=== PATIENT | male | born 1950 | race Caucasian/White ===

== ENCOUNTER 2020-12-22 15:49 | Inpatient (IN) ==
[2020-12-22] MEDS ORDERED: IOPAMIDOL 100 ML BOTTLE IV ONE (15:50)
[2020-12-22] MEDS ORDERED: 0.9 % SODIUM CHLORIDE 1,000 ML IV ONE (16:12)
[2020-12-22] MEDS ORDERED: ACETAMINOPHEN 325 MG TABLET PO ONE (16:21)
--- NOTE | 2020-12-22 16:24 | Emergency Department Note ---
HPI General Chief complaint: Shortness of Breath/Dyspnea Stated complaint: SOB covid Time Seen by Provider: 12/22/20 16:08 Source: patient Mode of arrival: ambulatory Limitations: no limitations History of Present Illness HPI Narrative: This is a 70-year-old male who was sent in from [facility] for hypoxia with diagnosis of Covid today. O2 saturations are now 85% on room air. Patient complains of symptoms since Thursday. He started with muscle aches and fatigue. He now has developed shortness of breath and cough. He is on antihypertensive medications, not diabetic. No other major medical issues. He did have laboratory work-up at [facility] with a positive D-dimer of 1360 NG/mL (normal range 0-600). CBC shows normal white blood cell count, an anemia with an H&H of 13.6/39.4, platelet count of 173,000, CO2 of 17.5 mEq/L, anion gap of 19.6 mEq/L, and a creatinine 1.38 with an estimated GFR of 51. ALT and AST are elevated at 98 and 105 respectively. Patient does denies a history of excessive alcohol use. Related Data Home Medications Medication Instructions Recorded Confirmed amlodipine 10 mg PO QDAY 12/22/20 12/22/20 aspirin [Adult Low Dose Aspirin] 81 mg PO QDAY 12/22/20 12/22/20 hydrochlorothiazide 12.5 mg PO QDAY 12/22/20 12/22/20 losartan 100 mg PO DAILY 12/22/20 12/22/20 Allergies Allergy/AdvReac Type Severity Reaction Status Date / Time No Known Drug Allergies Allergy Unverified 12/22/20 19:43 Review of Systems ROS ROS Narrative: Narrative: All systems ED: reviewed and negative except as stated. [facility] Narrative Patient History Narrative: Narrative: Medical/Surgical/Family History All Active Problems (Updated 12/22/20 @ 19:14 by Vanessa Ellis PA-C) Pneumonia due to COVID-19 virus (Acute) Acute respiratory failure with hypoxia (Acute) Social History Smoking Status: Former smoker Exam Narrative Narrative: General: AOx3, NAD, nontoxic appearing. Pleasant and conversant. HEENT: PERRLA, EOMI, normocephalic. Moist mucous membranes. Normal facies and normal dentition. Chest: Symmetric, no pain to palpation Respiratory: Lungs clear to auscultation bilaterally. No respiratory distress. Unlabored breathing. Heart: Regular rate and rhythm, no murmurs/clicks/rubs. Abdomen: Non-tender, Non distended, normal bowel tones. No organomegaly. Extremities: Warm and well perfused. No edema. DP 2+ bilaterally. No venous stasis. Neuro: No focal deficits. Cranial nerves II-XII normal. Skin: Warm dry, no rashes or lesions, no cyanosis. Psych: Normal mood and affect Heme/Lymph: No bruising General Limitations: no limitations Course Course Course Narrative: This is a 70-year-old male with diagnosis of Covid who presents with hypoxia and elevated D-dimer Reevaluation(s) Reevaluation #1: Obtain CT of the chest to rule out PE Patient already had labs drawn at [facility] will not repeat these except for troponin Obtain EKG Give IV fluids Tylenol for fever Monitor for oxygen needs Reevaluation #2: CT of the chest is negative for PE and shows bilateral Covid pneumonia. Granuloatous nodules are noted with hilar lymphadenopathy. Report is negative and EKG shows normal sinus rhythm without acute ischemic ST changes. Normal intervals and left axis deviation. Patient has evidence of endorgan dysfunction on laboratory work-up from [facility], he will likely need admission given his persistent hypoxia and endorgan dysfunction Give 6 mg IV dexamethasone x1 dose Reevaluation #3: Patient was ambulated around the room and his oxygen levels dropped to 86% on room air. He was symptomatic with shortness of breath. Given patient's hypoxia he meets criteria for admission. Awaiting hospitalist consult. Vital Signs Vital signs: Vital Signs Temperature 99.3 F H 12/22/20 15:50 Pulse Rate 94 H 12/22/20 15:50 Respiratory Rate 20 12/22/20 15:50 Blood Pressure 132/76 12/22/20 15:50 Pulse Oximetry (%) 85 L 12/22/20 15:50 Temperature 99.3 F H 12/22/20 19:33 Pulse Rate 74 12/22/20 19:54 Respiratory Rate 22 12/22/20 19:54 Blood Pressure 127/74 12/22/20 19:54 Pulse Oximetry (%) 96 12/22/20 19:54 MDM MDM Narrative Medical decision making narrative: Hypoxia Covid pneumonia Acute kidney injury Transaminitis The patient meets admission criteria for severe Covid 19 infection. I have signed the patient out to the hospitalist and he is pending admission. Lab Data Labs: Lab Results 12/22/20 12/22/20 12/22/20 Range/Units 16:40 16:40 17:47 POC Creatinine 1.5 H (0.6-1.2) mg/dL Troponin T < 0.01 (<0.03) ng/mL C-Reactive Protein 2.40 H (0.03-0.80) mg/dL Discharge Plan Patient/Caregiver Discharge Instructions Pt seen by [employer] OPERATOR/PA only: Yes Clinical Impression: Pneumonia due to COVID-19 virus, Acute respiratory failure with hypoxia Patient Disposition: Xfer As Inpt ([facility]) Condition: Fair Discharge Date/Time: 12/22/20 19:30
[2020-12-22] MEDS ORDERED: DEXAMETHASONE 10 MG/ML VIAL IV ONE (17:45)
[2020-12-22] MEDS ORDERED: REMDESIVIR 200 MG in 0.9 % SODIUM CHLORIDE 250 ML IV ONE (18:08)
--- NOTE | 2020-12-22 19:15 | Internal Med History&Physical ---
HPI History of Present Illness Patient information: Note initiated : 12/22/20 at 7:10 pm Service Date, if different from initiated Date: [] Patient: Shay Finch a 70 y/o M admitted on for SOB covid. Chief Complaint: [] History of present illness: Mr. Finch is a 70 year old M Presents to the ED with shortness of breath. Patient has been feeling ill for about a week at which time he was exposed to his son who was sick. He had fevers and chills at times but not too bad. 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 He was seen at [facility] and was found to be hypoxic and was Covid positive. Pt was not vaccinated. In the ED he had sats of 85% on room air. Labs show a leukopenia and a mild elevation in transaminases and a creatinine of 1.4 with unknown baseline. Lactate 2.2. Review of Systems: Pertinent positives as above. denies headache/nausea/vomiting/chest or abdominal pain/diarrhea. Remaining 10 point review of system reviewed negative PFSH PFSH All Active Problems (Updated 12/22/20 @ 19:14 by Vanessa Ellis PA-C) Pneumonia due to COVID-19 virus (Acute) Acute respiratory failure with hypoxia (Acute) MEDS/ALLERGIES Home Medications and Allergies Home Medications Medication Instructions Recorded Confirmed Type amlodipine 10 mg PO QDAY 12/22/20 12/22/20 History aspirin [Adult Low Dose Aspirin] 81 mg PO QDAY 12/22/20 12/22/20 History hydrochlorothiazide 12.5 mg PO QDAY 12/22/20 12/22/20 History losartan 100 mg PO DAILY 12/22/20 12/22/20 History Allergies Allergy/AdvReac Type Severity Reaction Status Date / Time No Known Drug Allergies Allergy Unverified 12/22/20 15:53 EXAM Constitutional Vitals: Temp Pulse Resp BP Pulse Ox 99.3 F H 79 20 145/86 95 12/22/20 15:50 12/22/20 18:28 12/22/20 15:50 12/22/20 18:28 12/22/20 18:28 Exam: General: Alert, Awake, No acute Distress, obese Eyes/N/T: EOMI, PERRL, Head/Neck: neck supple, normocephalic atraumatic CV: RRR, No murmurs, normal s1/s2 Pulm: Fine rales b/l, no wheezing/rhonchi Abd: soft, nontender, +BS x4 Ext: no clubbing/cyanosis/edema Neuro: Alert, no focal deficits, moves all extremities, CN 2-12 grossly intact, symmetrical strength b/l upper/lower, sensations intact b/l upper/lower Skin: warm/dry DATA Data Completed and Pending Labs: Labs from last 24 hours 12/22/20 12/22/20 16:40 16:40 POC Creatinine 1.5 H Troponin T < 0.01 A/P Narrative A/P Narrative: A: *Covid pneumonia: *Acute hypoxic respiratory failure: *HTN: *Suspected CKD stage III: *Obesity: *Transaminitis: 2/2 viral illness P: -Remdesivir/dexamethasone -O2 supp, wean as able -IS/Acapella -Proning and mobilization daily -cont home norvasc/acei, hold hctz for now -update home meds in system -ppx: Lovenox bid DNR Time Spent With Patient Time: Total time spent is greater than 50% in coordination of care (as documented) at patient's floor/unit and/or counseling patient:
[2020-12-22] MEDS ORDERED: IPRATROPIUM/ALBUTEROL 3 ML AMPUL.NEB NEB PRN (19:54)
[2020-12-22] MEDS ORDERED: POLYETHYLENE GLYCOL 3350 17 GM PACKET PO PRN (19:54)
[2020-12-22] MEDS ORDERED: POTASSIUM CHLORIDE 20 MEQ TABLET PO PRN ×2 (19:54)
[2020-12-22] MEDS ORDERED: IPRATROPIUM/ALBUTEROL SULFATE 1 PUFF INHALER INH PRN (19:54)
[2020-12-22] MEDS ORDERED: SENNOSIDES 1 TABLET PO PRN (19:54)
[2020-12-22] MEDS ORDERED: POTASSIUM CHLORIDE 40 MEQ in DEXTROSE 5% IN WATER 500 ML IV PRN (19:54)
[2020-12-22] MEDS ORDERED: LABETALOL 5 MG/ML ML IV PRN (19:54)
[2020-12-22] MEDS ORDERED: MAGNESIUM SULFATE 2 GM/50 ML BAG IV PRN (19:54)
[2020-12-22] MEDS ORDERED: ACETAMINOPHEN 325 MG TABLET PO PRN (19:54)
[2020-12-22] MEDS ORDERED: ONDANSETRON 4 MG/2 ML VIAL IV PRN (19:54)
[2020-12-22] MEDS: ENOXAPARIN 40 MG/0.4 ML SYRINGE SQ SCH (21:38)
[2020-12-22] MEDS: ZINC SULFATE 50 MG CAPSULE PO SCH (21:38)
[2020-12-22] MEDS: 0.9 % SODIUM CHLORIDE 10 ML SYRINGE IV SCH (21:39)
[2020-12-23] MEDS: 0.9 % SODIUM CHLORIDE 10 ML SYRINGE IV SCH ×3 (05:26→21:22)
[2020-12-23 07:17] LABS: Hematocrit 36.6 % (40.1-51.0); Hemoglobin 12.8 g/dL (13.7-17.5); Mean Cell Volume 94.3 fL (80.0-100.0); Mean Platelet Volume 10.5 fL (7.4-10.4); Platelet Count 174 K/mcL (140-440); RBC 3.88 M/mcL (4.63-6.08); Red Cell Distribution Width 11.5 % (11.5-14.5); WBC 3.7 K/mcL (4.5-11.0)
--- NOTE | 2020-12-23 07:53 | Internal Med Progress Note ---
SUBJECTIVE Subjective Patient information: Note initiated : 12/23/20 at 7:51 am Service Date, if different from initiated Date: [] Patient: Shay Finch 70 y/o M admitted on 12/22/20 for SOB covid. Chief Complaint: [] Interval history: History of present illness: Mr. Finch is a 70 year old M Presents to the ED with shortness of breath. Patient has been feeling ill for about a week at which time he was exposed to his son who was sick. He had fevers and chills at times but not too bad. 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 He was seen at [facility] and was found to be hypoxic and was Covid positive. Pt was not vaccinated. In the ED he had sats of 85% on room air. Labs show a leukopenia and a mild elevation in transaminases and a creatinine of 1.4 with unknown baseline. Lactate 2.2. / Slept okay. Occasional cough. Feels her shortness of breath is improving. No other complaints. Review of Systems: denies headache/fever/chills/nausea/vomiting/chest or abdominal pain/diarrhea. Otherwise see above. Constitutional Vitals: Vital Signs Temp Pulse Resp BP Pulse Ox 97.7 F 69 20 113/57 92 12/23/20 03:10 12/23/20 03:10 12/23/20 03:10 12/23/20 03:10 12/23/20 03:10 Period Temp Pulse Resp BP Sys/Jones Pulse Ox Last 24 Hr 97.7 F-99.3 F 69-94 - 110-145/57-86 85-98 Intake and Output 12/22/20 12/23/20 12/23/20 21:59 05:59 13:59 Intake Total 1000 1350 Output Total 1700 Balance 1000 -350 Weight 115.383 kg Intake & Output: Intake & Output 12/22/20 12/23/20 12/23/20 21:59 05:59 13:59 Intake Total 1000 1350 Output Total 1700 Balance 1000 -350 Weight 115.383 kg Intake: IV 1000 250 Sodium Chloride 0.9% 1,000 ml @ 1000 Wide Open IV .Q0M ONE Rx#: [id number] Veklury 200 mg In Sodium 250 Chloride 0.9% 250 ml @ 500 mls/ hr IV ONCE ONE Rx#:[id number] Oral 1100 Output: Void Amount 1700 Other: Urine Appearance Clear Urine Color Dark Yellow Urine Odor Normal Exam: General: Alert, Awake, No acute Distress, obese Eyes/N/T: EOMI, Head/Neck: neck supple, CV: RRR, No murmurs, Pulm: Fine rales b/l, no wheezing/rhonchi Abd: soft, nontender, +BS x4 Ext: no clubbing/cyanosis/edema Neuro: Alert, no focal deficits, moves all extremities, Skin: warm/dry OBJ DATA Labs CBC & Chem 7: 12/23/20 05:40 12/23/20 05:39 Labs: Abnormal Lab Results 12/23/20 12/22/20 12/22/20 05:40 17:47 16:40 WBC 3.7 L RBC 3.88 L Hgb 12.8 L Hct 36.6 L MPV 10.5 H POC Creatinine 1.5 H C-Reactive Protein 2.40 H Meds: Medications Acetaminophen (Acetaminophen 325 Mg Tablet) 650 mg PO Q6HP PRN PRN Reason: PAIN/FEVER > 101 Albuterol/Ipratropium (Ipratropium/Albuterol 3 Ml Ampul.Neb) 3 ml NEB Q4HP PRN PRN Reason: Shortness Of Breath Albuterol/Ipratropium (Ipratropium/Albuterol Sulfate 1 Puff Inhaler) 2 puff INH QIDP PRN PRN Reason: dys Amlodipine Besylate (Amlodipine 10 Mg Tablet) 10 mg PO QDAY [facility] Aspirin (Aspirin 81 Mg Tab.Chew) 81 mg PO DAILY [facility] Dexamethasone (Dexamethasone 4 Mg Tablet) 6 mg PO DAILY [facility] Enoxaparin Sodium (Enoxaparin 40 Mg/0.4 Ml Syringe) 40 mg SQ BID [facility] Last Admin: 12/22/20 21:38 Dose: 40 mg Documented by: Potassium Chloride 40 meq/ (Dextrose) 520 mls @ 130 mls/hr IV UD PRN PRN Reason: Potassium < 3 Magnesium Sulfate (Magnesium Sulfate) 2 gm in 50 mls @ 50 mls/hr IV UD PRN PRN Reason: Magnesium </= 1.6 REMDESIVIR 100 mg/ Sodium (Chloride) 250 mls @ 500 mls/hr IV Q24H [facility] Stop: 12/26/20 15:29 Labetalol HCl (Labetalol 5 Mg/Ml Ml) 0 mg IV Q2HP PRN PRN Reason: Hypertension Losartan Potassium (Losartan 50 Mg Tablet) 100 mg PO DAILY [facility] Ondansetron HCl (Ondansetron 4 Mg/2 Ml Vial) 4 mg IV Q4HP PRN PRN Reason: Nausea And Vomiting Polyethylene Glycol (Polyethylene Glycol 3350 17 Gm Packet) 17 gm PO DAILYP PRN PRN Reason: Constipation Potassium Chloride (Potassium Chloride 20 Meq Tablet) 40 meq PO UD PRN PRN Reason: Potssium is 3-3.5 Potassium Chloride (Potassium Chloride 20 Meq Tablet) 40 meq PO UD PRN PRN Reason: Potassium < 3 Senna (Sennosides 1 Tablet) 2 tab PO DAILYP PRN PRN Reason: Constipation Sodium Chloride (0.9 % Sodium Chloride 10 Ml Syringe) 10 ml IV Q8 [facility] Last Admin: 12/23/20 05:26 Dose: 10 ml Documented by: Zinc Sulfate (Zinc Sulfate 50 Mg Capsule) 50 mg PO DAILY [facility] Last Admin: 12/22/20 21:38 Dose: Not Given Documented by: A/P Narrative A/P Narrative: A: *Covid pneumonia: *Acute hypoxic respiratory failure: -on 2L NC *HTN: *Suspected CKD stage III: likely baseline *Obesity: *Transaminitis: 2/2 viral illness P: -Remdesivir/dexamethasone -O2 supp, wean as able -IS/Acapella -Proning and mobilization daily -cont home norvasc/acei, hold hctz for now -update home meds in system -ppx: Lovenox bid DNR Time Spent With Patient Time: Total time spent is greater than 50% in coordination of care (as documented) at patient's floor/unit and/or counseling patient: QUALITY VTE Deep Vein Thrombosis/Pulmonary Embolism Present on Admission: No
[2020-12-23] MEDS: ASPIRIN 81 MG TAB.CHEW PO SCH (07:57)
[2020-12-23] MEDS: ZINC SULFATE 50 MG CAPSULE PO SCH (07:57)
[2020-12-23] MEDS: amLODIPine 10 MG TABLET PO SCH (07:57)
[2020-12-23] MEDS: DEXAMETHASONE 4 MG TABLET PO SCH (07:58)
[2020-12-23] MEDS: ENOXAPARIN 40 MG/0.4 ML SYRINGE SQ SCH ×2 (07:58→21:22)
[2020-12-23 08:19] LABS: ALT/SGPT 78 U/L (<40); AST/SGOT 82 U/L (<40); Albumin 3.3 gm/dL (3.2-5.2); Alkaline Phosphatase 77 U/L (39-117); Bilirubin,Direct < 0.2 mg/dL (0-0.3); Bilirubin,Total 0.2 mg/dL (0.1-1.0); Blood Urea Nitrogen 17 mg/dL (8-23); Calcium 8.8 mg/dL (8.6-10.4); Carbon Dioxide 19 mmol/L (22-30); Chloride 101 mmol/L (96-108); Globulin 3.3 gm/dL (2.2-3.7); Glomerular Filtration Rate 50; Glucose 182 mg/dL (70-105); Lactate Dehydrogenase 464 U/L (135-225); Phosphorous 2.9 mg/dL (2.5-4.5); Triglycerides 106 mg/dL (<150); Uric Acid 6.6 mg/dL (2.5-8.0)
[2020-12-23 08:30] LABS: Band Neutrophils % 5 % (0-10); Lymphocytes % 19 % (15-49); Monocytes % (Manual) 5 % (1-12); Platelet Estimate NORMAL (Normal); RBC Morphology NORMAL (Normal); Segmented Neutrophils % 71 % (38-78)
--- NOTE | 2020-12-23 08:31 | Cat Scan Report ---
History: COVID pneumonia, hypoxia, elevated serum d-dimer level, evaluate for pulmonary emboli TECHNIQUE: Following injection of intravenous nonionic contrast the chest was imaged during the pulmonary arterial phase. Sagittal, coronal and axial MIPS images were created. FINDINGS: The pulmonary arteries are normal with no intraluminal filling defects. There is a mosaic pattern of diffuse groundglass alveolar infiltrates throughout both lungs. No lobar consolidation is present. Lung volumes are normal. The bronchi and trachea appear normal. There are least six small subpleural noncalcified nodules in the right lung and a couple posteriorly in the left lower lobe. They measure up to 9 mm in greatest dimension. No dominant mass is present in either lung. There are couple reactive lymph nodes in both lizabeth. Largest is in the right lower lobe and measures 1.8 cm. The heart is normal in size and contour. A moderate amount calcified plaque is present in the coronary arteries. Aorta is normal in caliber containing a small amount of plaque. No pericardial or pleural effusion are present. IMPRESSION: No evidence pulmonary emboli Moderate bilateral COVID pneumonia Nonspecific peripheral lung nodules bilaterally. These are more likely benign than malignant and may be due to a granulomatous infection Vanessa Ellis was called with the report Interpreted and Authenticated by: Salvatore Quintana 12/23/20
[2020-12-23] MEDS ORDERED: LOSARTAN 50 MG TABLET PO SCH (09:00)
[2020-12-23] MEDS ORDERED: REMDESIVIR 100 MG in 0.9 % SODIUM CHLORIDE 250 ML IV SCH (15:00)
[2020-12-24] MEDS: 0.9 % SODIUM CHLORIDE 10 ML SYRINGE IV SCH ×3 (05:43→20:06)
--- NOTE | 2020-12-24 07:37 | Internal Med Progress Note ---
SUBJECTIVE Subjective Patient information: Note initiated : 12/24/20 at 7:35 am Service Date, if different from initiated Date: [] Patient: Shay Finch 70 y/o M admitted on 12/22/20 for SOB covid. Chief Complaint: [] Interval history: History of present illness: Mr. Finch is a 70 year old M Presents to the ED with shortness of breath. Patient has been feeling ill for about a week at which time he was exposed to his son who was sick. He had fevers and chills at times but not too bad. 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 He was seen at [facility] and was found to be hypoxic and was Covid positive. Pt was not vaccinated. In the ED he had sats of 85% on room air. Labs show a leukopenia and a mild elevation in transaminases and a creatinine of 1.4 with unknown baseline. Lactate 2.2. 12/23 Slept okay. Occasional cough. Feels her shortness of breath is improving. No other complaints. 12/24 Patient became increasingly hypoxic last night. He did not clearly feel short of breath but he required 215 L oxygen mask. Transfer to PCU on Vapotherm. Patient has occasional cough and does have shortness of breath but does not feel it is any worse. Review of Systems: denies headache/fever/chills/nausea/vomiting/chest or abdominal pain/diarrhea. Otherwise see above. Constitutional Vitals: Vital Signs Temp Pulse Resp BP Pulse Ox 97.5 F 74 22 138/65 92 12/24/20 07:00 12/24/20 07:00 12/24/20 07:00 12/24/20 07:00 12/24/20 07:00 Period Temp Pulse Resp BP Sys/Jones Pulse Ox Last 24 Hr 97.1 F-99.5 F 69-83 19-24 99-150/51-83 4-96 Intake and Output 12/23/20 12/24/20 12/24/20 21:59 05:59 13:59 Intake Total 1850 Balance 1850 Weight 116.29 kg Intake & Output: Intake & Output 12/23/20 12/24/20 12/24/20 21:59 05:59 13:59 Intake Total 1850 Balance 1850 Weight 116.29 kg Intake: IV 250 Veklury 100 mg In Sodium 250 Chloride 0.9% 250 ml @ 500 mls/ hr IV Q24H [facility] Rx#:[id number] Oral 1600 Other: Meal Lunch Percent of Meal Consumed 100% # Voids 4 3 # Bowel Movements 1 Exam: General: Alert, Awake, No acute Distress, obese Eyes/N/T: EOMI, Head/Neck: neck supple, CV: RRR, No murmurs, Pulm: rhonchi/rales b/l, no wheezing/rhonchi, nonlabored Abd: soft, nontender, +BS x4 Ext: no clubbing/cyanosis, mild edema b/l Neuro: Alert, no focal deficits, moves all extremities, Skin: warm/dry OBJ DATA Labs CBC & Chem 7: 12/23/20 05:40 12/24/20 05:43 Labs: Abnormal Lab Results 12/23/20 12/23/20 12/22/20 05:40 05:39 17:47 WBC 3.7 L RBC 3.88 L Hgb 12.8 L Hct 36.6 L MPV 10.5 H Carbon Dioxide 19 L Anion Gap 18.0 H Creatinine 1.4 H POC Creatinine Glucose 182 H GGT 64 H AST 82 H ALT 78 H Lactate Dehydrogenase 464 H C-Reactive Protein 2.20 H 2.40 H 12/22/20 16:40 WBC RBC Hgb Hct MPV Carbon Dioxide Anion Gap Creatinine POC Creatinine 1.5 H Glucose GGT AST ALT Lactate Dehydrogenase C-Reactive Protein Meds: Medications Acetaminophen (Acetaminophen 325 Mg Tablet) 650 mg PO Q6HP PRN PRN Reason: PAIN/FEVER > 101 Albuterol/Ipratropium (Ipratropium/Albuterol 3 Ml Ampul.Neb) 3 ml NEB Q4HP PRN PRN Reason: Shortness Of Breath Albuterol/Ipratropium (Ipratropium/Albuterol Sulfate 1 Puff Inhaler) 2 puff INH QIDP PRN PRN Reason: dys Amlodipine Besylate (Amlodipine 10 Mg Tablet) 10 mg PO QDAY [facility] Last Admin: 12/23/20 07:57 Dose: 10 mg Documented by: Aspirin (Aspirin 81 Mg Tab.Chew) 81 mg PO DAILY [facility] Last Admin: 12/23/20 07:57 Dose: 81 mg Documented by: Dexamethasone (Dexamethasone 4 Mg Tablet) 6 mg PO DAILY [facility] Last Admin: 12/23/20 07:58 Dose: 6 mg Documented by: Enoxaparin Sodium (Enoxaparin 40 Mg/0.4 Ml Syringe) 40 mg SQ BID [facility] Last Admin: 12/23/20 21:22 Dose: 40 mg Documented by: Potassium Chloride 40 meq/ (Dextrose) 520 mls @ 130 mls/hr IV UD PRN PRN Reason: Potassium < 3 Magnesium Sulfate (Magnesium Sulfate) 2 gm in 50 mls @ 50 mls/hr IV UD PRN PRN Reason: Magnesium </= 1.6 REMDESIVIR 100 mg/ Sodium (Chloride) 250 mls @ 500 mls/hr IV Q24H [facility] Stop: 12/26/20 15:29 Last Infusion: 12/23/20 15:30 Dose: Infused Documented by: Labetalol HCl (Labetalol 5 Mg/Ml Ml) 0 mg IV Q2HP PRN PRN Reason: Hypertension Losartan Potassium (Losartan 50 Mg Tablet) 100 mg PO DAILY [facility] Last Admin: 12/23/20 07:57 Dose: 100 mg Documented by: Ondansetron HCl (Ondansetron 4 Mg/2 Ml Vial) 4 mg IV Q4HP PRN PRN Reason: Nausea And Vomiting Polyethylene Glycol (Polyethylene Glycol 3350 17 Gm Packet) 17 gm PO DAILYP PRN PRN Reason: Constipation Potassium Chloride (Potassium Chloride 20 Meq Tablet) 40 meq PO UD PRN PRN Reason: Potssium is 3-3.5 Potassium Chloride (Potassium Chloride 20 Meq Tablet) 40 meq PO UD PRN PRN Reason: Potassium < 3 Senna (Sennosides 1 Tablet) 2 tab PO DAILYP PRN PRN Reason: Constipation Sodium Chloride (0.9 % Sodium Chloride 10 Ml Syringe) 10 ml IV Q8 [facility] Last Admin: 12/24/20 05:43 Dose: 10 ml Documented by: Zinc Sulfate (Zinc Sulfate 50 Mg Capsule) 50 mg PO DAILY [facility] Last Admin: 12/23/20 07:57 Dose: 50 mg Documented by: A/P Narrative A/P Narrative: A: *Covid pneumonia w/ARDS: *Acute hypoxic respiratory failure: -O2 need increased n/on to 12-15L oxymask, now on vapotherm *HTN: *Suspected CKD stage III: likely baseline *Obesity: *Transaminitis: 2/2 viral illness P: -Remdesivir/dexamethasone -O2 supp, wean as able -IS/Acapella -monitor crp -Proning and mobilization daily -cont home norvasc/acei, hold hctz for now -ppx: Lovenox bid DNR Time Spent With Patient Time: Total time spent is greater than 50% in coordination of care (as documented) at patient's floor/unit and/or counseling patient: QUALITY VTE Deep Vein Thrombosis/Pulmonary Embolism Present on Admission: No
[2020-12-24 08:02] LABS: ALT/SGPT 71 U/L (<40); AST/SGOT 68 U/L (<40); Albumin 3.3 gm/dL (3.2-5.2); Albumin/Globulin Ratio 0.9 (1.0-2.3); Alkaline Phosphatase 86 U/L (39-117); Bilirubin,Direct < 0.2 mg/dL (0-0.3); Bilirubin,Total 0.2 mg/dL (0.1-1.0); Blood Urea Nitrogen 26 mg/dL (8-23); Calcium 8.9 mg/dL (8.6-10.4); Carbon Dioxide 20 mmol/L (22-30); Chloride 101 mmol/L (96-108); Globulin 3.6 gm/dL (2.2-3.7); Glomerular Filtration Rate 67; Glucose 133 mg/dL (70-105); Lactate Dehydrogenase 511 U/L (135-225); Phosphorous 2.9 mg/dL (2.5-4.5); Triglycerides 120 mg/dL (<150); Uric Acid 6.5 mg/dL (2.5-8.0)
[2020-12-24] MEDS: ZINC SULFATE 50 MG CAPSULE PO SCH (09:04)
[2020-12-24] MEDS: DEXAMETHASONE 4 MG TABLET PO SCH (09:04)
[2020-12-24] MEDS: ENOXAPARIN 40 MG/0.4 ML SYRINGE SQ SCH ×2 (09:04→20:06)
[2020-12-24] MEDS: amLODIPine 10 MG TABLET PO SCH (09:04)
[2020-12-24] MEDS: ASPIRIN 81 MG TAB.CHEW PO SCH (09:04)
[2020-12-24] MEDS ORDERED: FUROSEMIDE 40 MG/4 ML VIAL IV ONE ×2 (09:14→09:59)
[2020-12-24] MEDS ORDERED: IPRATROPIUM/ALBUTEROL SULFATE 1 PUFF INHALER INH PRN (09:59)
[2020-12-24] MEDS ORDERED: IPRATROPIUM/ALBUTEROL 3 ML AMPUL.NEB NEB PRN (09:59)
[2020-12-24] MEDS ORDERED: LABETALOL 5 MG/ML ML IV PRN (09:59)
[2020-12-24] MEDS ORDERED: MAGNESIUM SULFATE 2 GM/50 ML BAG IV PRN (09:59)
[2020-12-24] MEDS ORDERED: SENNOSIDES 1 TABLET PO PRN (09:59)
[2020-12-24] MEDS ORDERED: POTASSIUM CHLORIDE 40 MEQ in DEXTROSE 5% IN WATER 500 ML IV PRN (09:59)
[2020-12-24] MEDS ORDERED: ONDANSETRON 4 MG/2 ML VIAL IV PRN (09:59)
[2020-12-24] MEDS ORDERED: ACETAMINOPHEN 325 MG TABLET PO PRN (09:59)
[2020-12-24] MEDS ORDERED: POLYETHYLENE GLYCOL 3350 17 GM PACKET PO PRN (09:59)
[2020-12-24] MEDS ORDERED: POTASSIUM CHLORIDE 20 MEQ TABLET PO PRN ×2 (09:59)
[2020-12-24] MEDS: REMDESIVIR 100 MG in 0.9 % SODIUM CHLORIDE 250 ML IV SCH (15:43)
[2020-12-24] MEDS: diphenhydrAMINE 25 MG CAPSULE PO SCH (21:11)
[2020-12-24] MEDS: MELATONIN 3 MG TABLET PO SCH (21:11)
[2020-12-24] MEDS: ACETAMINOPHEN 500 MG TABLET PO SCH (21:11)
[2020-12-25] MEDS: 0.9 % SODIUM CHLORIDE 10 ML SYRINGE IV SCH ×3 (05:54→21:19)
[2020-12-25 07:38] LABS: Basophils # (Auto) 0.01 K/mcL (0.00-0.30); Basophils % (Auto) 0.1 % (0.0-2.0); Eosinophils # (Auto) 0 K/mcL (0.00-0.70); Eosinophils % (Auto) 0 % (0.0-7.0); Hematocrit 35.7 % (40.1-51.0); Hemoglobin 12.3 g/dL (13.7-17.5); Lymphocytes # (Auto) 1.27 K/mcL (1.50-4.80); Lymphocytes % (Auto) 10.1 % (15.5-49.0); Mean Cell Volume 95.2 fL (80.0-100.0); Mean Corpuscular HGB Conc 34.5 g/dL (31.0-36.0); Mean Platelet Volume 10.4 fL (7.4-10.4); Monocytes # (Auto) 0.87 K/mcL (0.10-0.90); Monocytes % (Auto) 6.9 % (1.0-12.0); Neutrophils % (Auto) 82.9 % (38.0-78.0); Platelet Count 267 K/mcL (140-440); RBC 3.75 M/mcL (4.63-6.08); Red Cell Distribution Width 11.6 % (11.5-14.5); WBC 12.6 K/mcL (4.5-11.0)
[2020-12-25 08:22] LABS: ALT/SGPT 69 U/L (<40); AST/SGOT 58 U/L (<40); Albumin 3.1 gm/dL (3.2-5.2); Alkaline Phosphatase 80 U/L (39-117); Bilirubin,Direct < 0.2 mg/dL (0-0.3); Bilirubin,Total 0.3 mg/dL (0.1-1.0); Blood Urea Nitrogen 28 mg/dL (8-23); Calcium 8.6 mg/dL (8.6-10.4); Carbon Dioxide 23 mmol/L (22-30); Chloride 101 mmol/L (96-108); Glomerular Filtration Rate 86; Glucose 125 mg/dL (70-105); Lactate Dehydrogenase 427 U/L (135-225); Phosphorous 3.5 mg/dL (2.5-4.5); Triglycerides 135 mg/dL (<150); Uric Acid 7.2 mg/dL (2.5-8.0)
--- NOTE | 2020-12-25 08:23 | Internal Med Progress Note ---
SUBJECTIVE Subjective Patient information: Note initiated : 12/25/20 at 8:21 am Service Date, if different from initiated Date: [] Patient: Shay Finch a 70 y/o M admitted on 12/22/20 for SOB covid. Chief Complaint: [] Interval history: History of present illness: Mr. Finch is a 70 year old M Presents to the ED with shortness of breath. Patient has been feeling ill for about a week at which time he was exposed to his son who was sick. He had fevers and chills at times but not too bad. 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 He was seen at [facility] and was found to be hypoxic and was Covid positive. Pt was not vaccinated. In the ED he had sats of 85% on room air. Labs show a leukopenia and a mild elevation in transaminases and a creatinine of 1.4 with unknown baseline. Lactate 2.2. 12/23 Slept okay. Occasional cough. Feels her shortness of breath is improving. No other complaints. 12/24 Patient became increasingly hypoxic last night. He did not clearly feel short of breath but he required 215 L oxygen mask. Transfer to PCU on Vapotherm. Patient has occasional cough and does have shortness of breath but does not feel it is any worse. 12/25 Patient on Vapotherm at 20 L/min. FiO2 around 70. Patient does feel like he is breathing better. No overnight event or new complaints. Mild cough. Review of Systems: denies headache/fever/chills/nausea/vomiting/chest or abdominal pain/diarrhea. Otherwise see above. Constitutional Vitals: Vital Signs Temp Pulse Resp BP Pulse Ox 97.5 F 63 18 113/66 98 12/25/20 04:02 12/25/20 06:02 12/25/20 06:02 12/25/20 06:02 12/25/20 08:15 Period Temp Pulse Resp BP Sys/Jones Pulse Ox Last 24 Hr 97.5 F-98.7 F 55-82 13-23 111-136/65-79 90-98 Intake and Output 12/24/20 12/25/20 12/25/20 21:59 05:59 13:59 Intake Total 950 460 Output Total 1550 900 Balance -600 -440 Weight 117.208 kg Intake & Output: Intake & Output 12/24/20 12/25/20 12/25/20 21:59 05:59 13:59 Intake Total 950 460 Output Total 1550 900 Balance -600 -440 Weight 117.208 kg Intake: IV 250 Veklury 100 mg In Sodium 250 Chloride 0.9% 250 ml @ 500 mls/ hr IV Q24H [facility] Rx#:[id number] Oral 700 460 Output: Void Amount 1550 900 Other: Urine Appearance Clear Clear Urine Color Dark Yellow Bright Yellow Urine Odor Normal Exam: General: Alert, Awake, No acute Distress, obese Eyes/N/T: EOMI, Head/Neck: neck supple, CV: RRR, No murmurs, Pulm: mild fine rales b/l, no wheezing, nonlabored Abd: soft, nontender, +BS x4 Ext: no clubbing/cyanosis, trace edema b/l Neuro: Alert, no focal deficits, moves all extremities, Skin: warm/dry OBJ DATA Labs CBC & Chem 7: 12/25/20 05:36 12/25/20 05:36 Labs: Abnormal Lab Results 12/25/20 12/24/20 12/23/20 05:36 05:43 05:40 WBC 12.6 H 3.7 L RBC 3.75 L 3.88 L Hgb 12.3 L 12.8 L Hct 35.7 L 36.6 L MPV 10.5 H Neut % (Auto) 82.9 H Lymph % (Auto) 10.1 L Lymph # (Auto) 1.27 L Absolute Neutrophils 10.42 H Carbon Dioxide 20 L Anion Gap BUN 26 H Creatinine POC Creatinine Glucose 133 H GGT 73 H AST 68 H ALT 71 H Lactate Dehydrogenase 511 H C-Reactive Protein Albumin/Globulin Ratio 0.9 L 12/23/20 12/22/20 12/22/20 05:39 17:47 16:40 WBC RBC Hgb Hct MPV Neut % (Auto) Lymph % (Auto) Lymph # (Auto) Absolute Neutrophils Carbon Dioxide 19 L Anion Gap 18.0 H BUN Creatinine 1.4 H POC Creatinine 1.5 H Glucose 182 H GGT 64 H AST 82 H ALT 78 H Lactate Dehydrogenase 464 H C-Reactive Protein 2.20 H 2.40 H Albumin/Globulin Ratio Meds: Medications Acetaminophen (Acetaminophen 325 Mg Tablet) 650 mg PO Q6HP PRN PRN Reason: PAIN/FEVER > 101 Acetaminophen (Acetaminophen 500 Mg Tablet) 500 mg PO QHS [facility]; Protocol Last Admin: 12/24/20 21:11 Dose: 500 mg Documented by: Albuterol/Ipratropium (Ipratropium/Albuterol 3 Ml Ampul.Neb) 3 ml NEB Q4HP PRN PRN Reason: Shortness Of Breath Albuterol/Ipratropium (Ipratropium/Albuterol Sulfate 1 Puff Inhaler) 2 puff INH QIDP PRN PRN Reason: dys Amlodipine Besylate (Amlodipine 10 Mg Tablet) 10 mg PO QDAY [facility] Aspirin (Aspirin 81 Mg Tab.Chew) 81 mg PO DAILY [facility] Dexamethasone (Dexamethasone 4 Mg Tablet) 6 mg PO DAILY [facility] Diphenhydramine HCl (Diphenhydramine 25 Mg Capsule) 25 mg PO QHS [facility] Last Admin: 12/24/20 21:11 Dose: 25 mg Documented by: Enoxaparin Sodium (Enoxaparin 40 Mg/0.4 Ml Syringe) 40 mg SQ BID [facility] Last Admin: 12/24/20 20:06 Dose: 40 mg Documented by: Magnesium Sulfate (Magnesium Sulfate) 2 gm in 50 mls @ 50 mls/hr IV UD PRN PRN Reason: Magnesium </= 1.6 REMDESIVIR 100 mg/ Sodium (Chloride) 250 mls @ 500 mls/hr IV Q24H [facility] Stop: 12/26/20 15:29 Last Infusion: 12/24/20 16:33 Dose: Infused Documented by: Potassium Chloride 40 meq/ (Dextrose) 520 mls @ 130 mls/hr IV UD PRN PRN Reason: Potassium < 3 Labetalol HCl (Labetalol 5 Mg/Ml Ml) 0 mg IV Q2HP PRN PRN Reason: Hypertension Losartan Potassium (Losartan 50 Mg Tablet) 50 mg PO DAILY [facility] Melatonin (Melatonin 3 Mg Tablet) 3 mg PO HS [facility] Last Admin: 12/24/20 21:11 Dose: 3 mg Documented by: Ondansetron HCl (Ondansetron 4 Mg/2 Ml Vial) 4 mg IV Q4HP PRN PRN Reason: Nausea And Vomiting Polyethylene Glycol (Polyethylene Glycol 3350 17 Gm Packet) 17 gm PO DAILYP PRN PRN Reason: Constipation Potassium Chloride (Potassium Chloride 20 Meq Tablet) 40 meq PO UD PRN PRN Reason: Potssium is 3-3.5 Potassium Chloride (Potassium Chloride 20 Meq Tablet) 40 meq PO UD PRN PRN Reason: Potassium < 3 Senna (Sennosides 1 Tablet) 2 tab PO DAILYP PRN PRN Reason: Constipation Sodium Chloride (0.9 % Sodium Chloride 10 Ml Syringe) 10 ml IV Q8 [facility] Last Admin: 12/25/20 05:54 Dose: 10 ml Documented by: Zinc Sulfate (Zinc Sulfate 50 Mg Capsule) 50 mg PO DAILY [facility] A/P Narrative A/P Narrative: A: *Covid pneumonia w/ARDS: *Acute hypoxic respiratory failure: -continues on vapotherm *HTN: *Suspected CKD stage III: likely baseline *Obesity: *Transaminitis: 2/2 viral illness P: -Remdesivir/dexamethasone -O2 supp, wean as able -IS/Acapella -monitor crp -Proning and mobilization daily -cont home norvasc/acei, hctz held initially -ppx: Lovenox bid DNR Time Spent With Patient Time: Total time spent is greater than 50% in coordination of care (as documented) at patient's floor/unit and/or counseling patient: QUALITY VTE Deep Vein Thrombosis/Pulmonary Embolism Present on Admission: No
[2020-12-25] MEDS ORDERED: LOSARTAN 50 MG TABLET PO SCH (09:00)
[2020-12-25] MEDS: ENOXAPARIN 40 MG/0.4 ML SYRINGE SQ SCH ×2 (09:09→21:19)
[2020-12-25] MEDS: LOSARTAN 50 MG TABLET PO SCH (09:10)
[2020-12-25] MEDS: ZINC SULFATE 50 MG CAPSULE PO SCH (09:10)
[2020-12-25] MEDS: ASPIRIN 81 MG TAB.CHEW PO SCH (09:10)
[2020-12-25] MEDS: amLODIPine 10 MG TABLET PO SCH (09:10)
[2020-12-25] MEDS: DEXAMETHASONE 4 MG TABLET PO SCH (09:10)
[2020-12-25] MEDS: REMDESIVIR 100 MG in 0.9 % SODIUM CHLORIDE 250 ML IV SCH (15:01)
[2020-12-25] MEDS: diphenhydrAMINE 25 MG CAPSULE PO SCH (21:18)
[2020-12-25] MEDS: MELATONIN 3 MG TABLET PO SCH (21:18)
[2020-12-25] MEDS: ACETAMINOPHEN 500 MG TABLET PO SCH (21:19)
[2020-12-26] MEDS: 0.9 % SODIUM CHLORIDE 10 ML SYRINGE IV SCH ×3 (05:53→21:13)
--- NOTE | 2020-12-26 06:43 | XRay Report ---
CLINICAL INFORMATION: f/u study covid pneumonia COMPARISON: 12/22/2020 FINDINGS: Moderate cardiomegaly is unchanged. Mediastinum and pulmonary vessels are normal. Moderate patchy infiltrates in both mid and lower lungs progressed. No effusion IMPRESSION: Moderate patchy infiltrates both mid and lower lungs progressing. Interpreted and Authenticated by: Shan Wiggins 12/26/20
[2020-12-26 07:02] LABS: Basophils # (Auto) 0.02 K/mcL (0.00-0.30); Basophils % (Auto) 0.2 % (0.0-2.0); Eosinophils # (Auto) 0 K/mcL (0.00-0.70); Eosinophils % (Auto) 0 % (0.0-7.0); Hematocrit 35.6 % (40.1-51.0); Hemoglobin 12.5 g/dL (13.7-17.5); Lymphocytes # (Auto) 1.17 K/mcL (1.50-4.80); Lymphocytes % (Auto) 10.1 % (15.5-49.0); Mean Corpuscular HGB Conc 35.1 g/dL (31.0-36.0); Mean Platelet Volume 10.1 fL (7.4-10.4); Monocytes # (Auto) 0.82 K/mcL (0.10-0.90); Monocytes % (Auto) 7.1 % (1.0-12.0); Neutrophils % (Auto) 82.6 % (38.0-78.0); Platelet Count 276 K/mcL (140-440); RBC 3.83 M/mcL (4.63-6.08); Red Cell Distribution Width 11.2 % (11.5-14.5); WBC 11.6 K/mcL (4.5-11.0)
[2020-12-26] MEDS: ENOXAPARIN 40 MG/0.4 ML SYRINGE SQ SCH ×2 (07:41→21:12)
[2020-12-26] MEDS: FUROSEMIDE 40 MG TABLET PO SCH (07:41)
[2020-12-26] MEDS: ZINC SULFATE 50 MG CAPSULE PO SCH (07:41)
[2020-12-26] MEDS: ASPIRIN 81 MG TAB.CHEW PO SCH (07:41)
[2020-12-26] MEDS: DEXAMETHASONE 4 MG TABLET PO SCH (07:42)
[2020-12-26] MEDS: LOSARTAN 50 MG TABLET PO SCH (07:42)
[2020-12-26] MEDS: amLODIPine 10 MG TABLET PO SCH (07:42)
[2020-12-26 08:02] LABS: ALT/SGPT 77 U/L (<40); AST/SGOT 47 U/L (<40); Albumin 3.1 gm/dL (3.2-5.2); Alkaline Phosphatase 83 U/L (39-117); Bilirubin,Total 0.3 mg/dL (0.1-1.0); Blood Urea Nitrogen 24 mg/dL (8-23); Calcium 8.4 mg/dL (8.6-10.4); Carbon Dioxide 26 mmol/L (22-30); Chloride 102 mmol/L (96-108); Globulin 3.1 gm/dL (2.2-3.7); Glomerular Filtration Rate 76; Glucose 128 mg/dL (70-105)
--- NOTE | 2020-12-26 09:32 | Internal Med Progress Note ---
SUBJECTIVE Subjective Patient information: Note initiated : 12/26/20 at 9:24 am Service Date, if different from initiated Date: [] Patient: Shay Finch a 70 y/o M admitted on 12/22/20 for SOB covid. Chief Complaint: [CoVID pneumonia] History of present illness: Mr. Finch is a 70 year old M Presents to the ED with shortness of breath. Patient has been feeling ill for about a week at which time he was exposed to his son who was sick. He had fevers and chills at times but not too bad. 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 He was seen at [facility] and was found to be hypoxic and was Covid positive. Pt was not vaccinated. In the ED he had sats of 85% on room air. Labs show a leukopenia and a mild elevation in transaminases and a creatinine of 1.4 with unknown baseline. Lactate 2.2. 12/23 Slept okay. Occasional cough. Feels her shortness of breath is improving. No other complaints. 12/24 Patient became increasingly hypoxic last night. He did not clearly feel short of breath but he required 215 L oxygen mask. Transfer to PCU on Vapotherm. Patient has occasional cough and does have shortness of breath but does not feel it is any worse. 12/25 Patient on Vapotherm at 20 L/min. FiO2 around 70. Patient does feel like he is breathing better. No overnight event or new complaints. Mild cough. 12/26: Been switched to high flow oxygen @6L earlier this morning, saturating mid-90s. Afebrile overnight. Tolerating proning. Improving degree of shortness of breath. c/o nonproductive cough. Denies wheezing. Denies chest pain. Denies fever or chills or sweating. Denies muscle aches. Constitutional Vitals: Vital Signs Temp Pulse Resp BP Pulse Ox 36.6 C 62 17 122/69 96 12/26/20 07:30 12/26/20 09:01 12/26/20 09:01 12/26/20 08:54 12/26/20 09:01 Period Temp Pulse Resp BP Sys/Jones Pulse Ox Last 24 Hr 36.4 C-36.9 C 54-94 04-26 104-137/68-84 90-100 Intake and Output 12/25/20 12/26/20 12/26/20 21:59 05:59 13:59 Intake Total 970 480 Output Total 1300 650 450 Balance -330 -170 -450 Weight 116.845 kg Intake & Output: Intake & Output 12/25/20 12/26/20 12/26/20 21:59 05:59 13:59 Intake Total 970 480 Output Total 1300 650 450 Balance -330 -170 -450 Weight 116.845 kg Intake: IV 250 Veklury 100 mg In Sodium 250 Chloride 0.9% 250 ml @ 500 mls/ hr IV Q24H [facility] Rx#:[id number] Oral 720 480 Output: Void Amount 1300 650 450 Other: Meal Dinner Percent of Meal Consumed 100% Urine Appearance Clear Clear Urine Color Bright Yellow Bright Yellow General appearance: cooperative and no acute distress Head Head exam: Present atraumatic and normocephalic Eye Eye exam: Present EOMI and PERRL ENT ENT exam: Present mucous membranes moist, normal exam and normal external ear exam Additional comments: High flow oxygen in place Neck Neck exam: Present normal inspection; Absent lymphadenopathy, tenderness and thyromegaly Respiratory Respiratory exam: Absent accessory muscle use, respiratory distress and wheezes Cardiovascular Cardiovascular exam: Present normal rate and rhythm; Absent JVD GI/Abdominal GI/Abdominal exam: Present normal bowel sounds and soft; Absent organomegaly and tenderness Rectal Rectal exam: Present deferred Extremities Exam Extremities exam: Present full ROM, normal capillary refill and normal inspection; Absent tenderness Neurological Exam Neurological exam: Present alert, CN II-XII intact and oriented X3; Absent motor sensory deficit Psychiatric Psychiatric exam: Present normal affect and normal mood; Absent anxious and depressed Skin Skin exam: Present dry and intact OBJ DATA Labs CBC & Chem 7: 12/26/20 05:17 12/26/20 05:17 Labs: Abnormal Lab Results 12/26/20 12/26/20 12/25/20 05:17 05:17 05:36 WBC 11.6 H RBC 3.83 L Hgb 12.5 L Hct 35.6 L RDW 11.2 L Neut % (Auto) 82.6 H Lymph % (Auto) 10.1 L Lymph # (Auto) 1.17 L Absolute Neutrophils 9.55 H Carbon Dioxide BUN 24 H 28 H Glucose 128 H 125 H Calcium 8.4 L GGT 84 H AST 47 H 58 H ALT 77 H 69 H Lactate Dehydrogenase 427 H Albumin 3.1 L 3.1 L Albumin/Globulin Ratio 12/25/20 12/24/20 05:36 05:43 WBC 12.6 H RBC 3.75 L Hgb 12.3 L Hct 35.7 L RDW Neut % (Auto) 82.9 H Lymph % (Auto) 10.1 L Lymph # (Auto) 1.27 L Absolute Neutrophils 10.42 H Carbon Dioxide 20 L BUN 26 H Glucose 133 H Calcium GGT 73 H AST 68 H ALT 71 H Lactate Dehydrogenase 511 H Albumin Albumin/Globulin Ratio 0.9 L Meds: Medications Acetaminophen (Acetaminophen 325 Mg Tablet) 650 mg PO Q6HP PRN PRN Reason: PAIN/FEVER > 101 Acetaminophen (Acetaminophen 500 Mg Tablet) 500 mg PO QHS [facility]; Protocol Last Admin: 12/25/20 21:19 Dose: 500 mg Documented by: Albuterol/Ipratropium (Ipratropium/Albuterol 3 Ml Ampul.Neb) 3 ml NEB Q4HP PRN PRN Reason: Shortness Of Breath Albuterol/Ipratropium (Ipratropium/Albuterol Sulfate 1 Puff Inhaler) 2 puff INH QIDP PRN PRN Reason: dys Amlodipine Besylate (Amlodipine 10 Mg Tablet) 10 mg PO QDAY [facility] Last Admin: 12/26/20 07:42 Dose: 10 mg Documented by: Aspirin (Aspirin 81 Mg Tab.Chew) 81 mg PO DAILY [facility] Last Admin: 12/26/20 07:41 Dose: 81 mg Documented by: Dexamethasone (Dexamethasone 4 Mg Tablet) 6 mg PO DAILY [facility] Last Admin: 12/26/20 07:42 Dose: 6 mg Documented by: Diphenhydramine HCl (Diphenhydramine 25 Mg Capsule) 25 mg PO QHS [facility] Last Admin: 12/25/20 21:18 Dose: 25 mg Documented by: Enoxaparin Sodium (Enoxaparin 40 Mg/0.4 Ml Syringe) 40 mg SQ BID [facility] Last Admin: 12/26/20 07:41 Dose: 40 mg Documented by: Furosemide (Furosemide 40 Mg Tablet) 40 mg PO DAILY [facility] Last Admin: 12/26/20 07:41 Dose: 40 mg Documented by: Magnesium Sulfate (Magnesium Sulfate) 2 gm in 50 mls @ 50 mls/hr IV UD PRN PRN Reason: Magnesium </= 1.6 REMDESIVIR 100 mg/ Sodium (Chloride) 250 mls @ 500 mls/hr IV Q24H [facility] Stop: 12/26/20 15:29 Last Infusion: 12/25/20 16:32 Dose: Infused Documented by: Potassium Chloride 40 meq/ (Dextrose) 520 mls @ 130 mls/hr IV UD PRN PRN Reason: Potassium < 3 Labetalol HCl (Labetalol 5 Mg/Ml Ml) 0 mg IV Q2HP PRN PRN Reason: Hypertension Losartan Potassium (Losartan 50 Mg Tablet) 50 mg PO DAILY [facility] Last Admin: 12/26/20 07:42 Dose: 50 mg Documented by: Melatonin (Melatonin 3 Mg Tablet) 3 mg PO HS [facility] Last Admin: 12/25/20 21:18 Dose: 3 mg Documented by: Ondansetron HCl (Ondansetron 4 Mg/2 Ml Vial) 4 mg IV Q4HP PRN PRN Reason: Nausea And Vomiting Polyethylene Glycol (Polyethylene Glycol 3350 17 Gm Packet) 17 gm PO DAILYP PRN PRN Reason: Constipation Potassium Chloride (Potassium Chloride 20 Meq Tablet) 40 meq PO UD PRN PRN Reason: Potssium is 3-3.5 Potassium Chloride (Potassium Chloride 20 Meq Tablet) 40 meq PO UD PRN PRN Reason: Potassium < 3 Senna (Sennosides 1 Tablet) 2 tab PO DAILYP PRN PRN Reason: Constipation Sodium Chloride (0.9 % Sodium Chloride 10 Ml Syringe) 10 ml IV Q8 [facility] Last Admin: 12/26/20 05:53 Dose: 10 ml Documented by: Zinc Sulfate (Zinc Sulfate 50 Mg Capsule) 50 mg PO DAILY [facility] Last Admin: 12/26/20 07:41 Dose: 50 mg Documented by: A/P Assessment and plan (1) Pneumonia due to COVID-19 virus: Status: Acute (2) Acute respiratory failure with hypoxia: Status: Acute (3) Anemia, normocytic normochromic: Status: Acute Narrative A/P Narrative: Assessment and Plans: 1. CoVID pneumonia with acute respiratory failure with hypoxia: Stays in inpatient PCU Isolation: airborne and contact Supplement oxygen titrate to achieve spo2 >92% Remdesivir Dexamethasone Lasix Lovenox Tylenol PRN fever cbc w/ auto diff in the morning to trend wbc Prone 16hr/day as tolerating 2. Anemia, normocytic normochromic: Daily cbc w/ auto diff in the morning to trend H/H; transfuse pRBC if hemoglobin <7.0, active bleeding, or symptomatic GI ppx: not currently indicated DVT ppx: Lovenox Code status: DNI DNR Prognosis: guarded Disposition: inpatient PCU Time Spent With Patient Time: Total time spent is greater than 50% in coordination of care (as documented) at patient's floor/unit and/or counseling patient: Total time spent with greater than 50% in coordination of care (as documented) at patient's floor/unit and/or counseling patient:: 25 - 35 minutes QUALITY VTE Deep Vein Thrombosis/Pulmonary Embolism Present on Admission: No
[2020-12-26] MEDS: REMDESIVIR 100 MG in 0.9 % SODIUM CHLORIDE 250 ML IV SCH (14:31)
[2020-12-26] MEDS: MELATONIN 3 MG TABLET PO SCH (21:12)
[2020-12-26] MEDS: ACETAMINOPHEN 500 MG TABLET PO SCH (21:12)
[2020-12-26] MEDS: diphenhydrAMINE 25 MG CAPSULE PO SCH (21:12)
[2020-12-27] MEDS: 0.9 % SODIUM CHLORIDE 10 ML SYRINGE IV SCH ×3 (05:45→21:45)
[2020-12-27 07:49] LABS: Basophils # (Auto) 0.03 K/mcL (0.00-0.30); Basophils % (Auto) 0.2 % (0.0-2.0); Eosinophils # (Auto) 0.06 K/mcL (0.00-0.70); Eosinophils % (Auto) 0.5 % (0.0-7.0); Hematocrit 36.4 % (40.1-51.0); Hemoglobin 12.7 g/dL (13.7-17.5); Lymphocytes # (Auto) 1.54 K/mcL (1.50-4.80); Lymphocytes % (Auto) 12.8 % (15.5-49.0); Mean Cell Volume 91.5 fL (80.0-100.0); Mean Corpuscular HGB Conc 34.9 g/dL (31.0-36.0); Mean Platelet Volume 10.4 fL (7.4-10.4); Monocytes # (Auto) 0.98 K/mcL (0.10-0.90); Monocytes % (Auto) 8.1 % (1.0-12.0); Neutrophils % (Auto) 78.4 % (38.0-78.0); Platelet Count 312 K/mcL (140-440); RBC 3.98 M/mcL (4.63-6.08); Red Cell Distribution Width 11.2 % (11.5-14.5)
[2020-12-27 08:26] LABS: ALT/SGPT 64 U/L (<40); AST/SGOT 28 U/L (<40); Albumin 2.9 gm/dL (3.2-5.2); Albumin/Globulin Ratio 0.9 (1.0-2.3); Alkaline Phosphatase 89 U/L (39-117); Bilirubin,Total 0.3 mg/dL (0.1-1.0); Blood Urea Nitrogen 22 mg/dL (8-23); Calcium 8.8 mg/dL (8.6-10.4); Carbon Dioxide 22 mmol/L (22-30); Chloride 104 mmol/L (96-108); Globulin 3.2 gm/dL (2.2-3.7); Glomerular Filtration Rate 90; Glucose 118 mg/dL (70-105)
[2020-12-27] MEDS: ASPIRIN 81 MG TAB.CHEW PO SCH (09:18)
[2020-12-27] MEDS: DEXAMETHASONE 4 MG TABLET PO SCH (09:18)
[2020-12-27] MEDS: amLODIPine 10 MG TABLET PO SCH (09:18)
[2020-12-27] MEDS: FUROSEMIDE 40 MG TABLET PO SCH (09:18)
[2020-12-27] MEDS: ENOXAPARIN 40 MG/0.4 ML SYRINGE SQ SCH ×2 (09:19→21:51)
[2020-12-27] MEDS: LOSARTAN 50 MG TABLET PO SCH (09:19)
[2020-12-27] MEDS: ZINC SULFATE 50 MG CAPSULE PO SCH (09:19)
--- NOTE | 2020-12-27 11:57 | Internal Med Progress Note ---
SUBJECTIVE Subjective Patient information: Note initiated : 12/27/20 at 11:55 am Service Date, if different from initiated Date: [] Patient: Shay Finch a 70 y/o M admitted on 12/22/20 for SOB covid. Chief Complaint: [CoVID pneumonia] Interval history: History of present illness: Mr. Finch is a 70 year old M Presents to the ED with shortness of breath. Patient has been feeling ill for about a week at which time he was exposed to his son who was sick. He had fevers and chills at times but not too bad. 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 He was seen at [facility] and was found to be hypoxic and was Covid positive. Pt was not vaccinated. In the ED he had sats of 85% on room air. Labs show a leukopenia and a mild elevation in transaminases and a creatinine of 1.4 with unknown baseline. Lactate 2.2. 12/23 Slept okay. Occasional cough. Feels her shortness of breath is improving. No other complaints. 12/24 Patient became increasingly hypoxic last night. He did not clearly feel short of breath but he required 215 L oxygen mask. Transfer to PCU on Vapotherm. Patient has occasional cough and does have shortness of breath but does not feel it is any worse. 12/25 Patient on Vapotherm at 20 L/min. FiO2 around 70. Patient does feel like he is breathing better. No overnight event or new complaints. Mild cough. 12/26: Been switched to high flow oxygen @6L earlier this morning, saturating mid-90s. Afebrile overnight. Tolerating proning. Improving degree of shortness of breath. c/o nonproductive cough. Denies wheezing. Denies chest pain. Denies fever or chills or sweating. Denies muscle aches. 12/27: Afebrile overnight. Been on 4-10L/min oxygen depending on posture. Tolerating proning. Improving degree of shortness of breath. c/o productive cough with clear sputum production. Denies wheezing. Denies chest pain. Denies fever or chills or sweating. Denies muscle aches. Constitutional Vitals: Vital Signs Temp Pulse Resp BP Pulse Ox 36.6 C 71 19 116/82 92 12/27/20 08:01 12/27/20 10:01 12/27/20 10:01 12/27/20 10:01 12/27/20 11:30 Period Temp Pulse Resp BP Sys/Jones Pulse Ox Last 24 Hr 36.3 C-36.7 C 51-96 12-22 63-137/41-109 87-98 Intake and Output 12/26/20 12/27/20 12/27/20 21:59 05:59 13:59 Intake Total 730 480 360 Output Total 1050 700 575 Balance -320 -220 -215 Weight 117.889 kg Intake & Output: Intake & Output 12/26/20 12/27/20 12/27/20 21:59 05:59 13:59 Intake Total 730 480 360 Output Total 1050 700 575 Balance -320 -220 -215 Weight 117.889 kg Intake: IV 250 Veklury 100 mg In Sodium 250 Chloride 0.9% 250 ml @ 500 mls/ hr IV Q24H [facility] Rx#:[id number] Oral 480 480 360 Output: Void Amount 1050 700 575 Other: Meal Dinner Breakfast Percent of Meal Consumed 100% 100% Feeding Ability Independent Urine Appearance Clear Clear Clear Urine Color Straw Bright Yellow Dark Yellow Stool Size Large Stool Color Brown Stool Consistency Soft Formed # Voids 1 # Bowel Movements 1 General appearance: cooperative and no acute distress Head Head exam: Present atraumatic and normocephalic Eye Eye exam: Present EOMI and PERRL ENT ENT exam: Present mucous membranes moist, normal exam and normal external ear exam Additional comments: High flow oxygen in place Neck Neck exam: Present normal inspection; Absent lymphadenopathy, tenderness and thyromegaly Respiratory Respiratory exam: Present rhonchi; Absent accessory muscle use, respiratory distress and wheezes Cardiovascular Cardiovascular exam: Present normal rate and rhythm; Absent JVD GI/Abdominal GI/Abdominal exam: Present normal bowel sounds and soft; Absent organomegaly and tenderness Rectal Rectal exam: Present deferred Extremities Exam Extremities exam: Present full ROM, normal capillary refill and normal inspection; Absent tenderness Neurological Exam Neurological exam: Present alert, CN II-XII intact and oriented X3; Absent motor sensory deficit Psychiatric Psychiatric exam: Present normal affect and normal mood; Absent anxious and depressed Skin Skin exam: Present dry and intact OBJ DATA Labs CBC & Chem 7: 12/27/20 05:34 12/27/20 05:34 Labs: Abnormal Lab Results 12/27/20 12/27/20 12/26/20 05:34 05:34 05:17 WBC 12.0 H RBC 3.98 L Hgb 12.7 L Hct 36.4 L RDW 11.2 L Neut % (Auto) 78.4 H Lymph % (Auto) 12.8 L Lymph # (Auto) [place] # (Auto) 0.98 H Absolute Neutrophils 9.43 H BUN 24 H Glucose 118 H 128 H Calcium 8.4 L GGT AST 47 H ALT 64 H 77 H Lactate Dehydrogenase Albumin 2.9 L 3.1 L Albumin/Globulin Ratio 0.9 L 12/26/20 12/25/20 12/25/20 05:17 05:36 05:36 WBC 11.6 H 12.6 H RBC 3.83 L 3.75 L Hgb 12.5 L 12.3 L Hct 35.6 L 35.7 L RDW 11.2 L Neut % (Auto) 82.6 H 82.9 H Lymph % (Auto) 10.1 L 10.1 L Lymph # (Auto) 1.17 L 1.27 L [place] # (Auto) Absolute Neutrophils 9.55 H 10.42 H BUN 28 H Glucose 125 H Calcium GGT 84 H AST 58 H ALT 69 H Lactate Dehydrogenase 427 H Albumin 3.1 L Albumin/Globulin Ratio Meds: Medications Acetaminophen (Acetaminophen 325 Mg Tablet) 650 mg PO Q6HP PRN PRN Reason: PAIN/FEVER > 101 Acetaminophen (Acetaminophen 500 Mg Tablet) 500 mg PO QHS [facility]; Protocol Last Admin: 12/26/20 21:12 Dose: 500 mg Documented by: Albuterol/Ipratropium (Ipratropium/Albuterol 3 Ml Ampul.Neb) 3 ml NEB Q4HP PRN PRN Reason: Shortness Of Breath Albuterol/Ipratropium (Ipratropium/Albuterol Sulfate 1 Puff Inhaler) 2 puff INH QIDP PRN PRN Reason: dys Amlodipine Besylate (Amlodipine 10 Mg Tablet) 10 mg PO QDAY [facility] Last Admin: 12/27/20 09:18 Dose: 10 mg Documented by: Aspirin (Aspirin 81 Mg Tab.Chew) 81 mg PO DAILY [facility] Last Admin: 12/27/20 09:18 Dose: 81 mg Documented by: Dexamethasone (Dexamethasone 4 Mg Tablet) 6 mg PO DAILY [facility] Last Admin: 12/27/20 09:18 Dose: 6 mg Documented by: Diphenhydramine HCl (Diphenhydramine 25 Mg Capsule) 25 mg PO QHS [facility] Last Admin: 12/26/20 21:12 Dose: 25 mg Documented by: Enoxaparin Sodium (Enoxaparin 40 Mg/0.4 Ml Syringe) 40 mg SQ BID [facility] Last Admin: 12/27/20 09:19 Dose: 40 mg Documented by: Furosemide (Furosemide 40 Mg Tablet) 40 mg PO DAILY [facility] Last Admin: 12/27/20 09:18 Dose: 40 mg Documented by: Magnesium Sulfate (Magnesium Sulfate) 2 gm in 50 mls @ 50 mls/hr IV UD PRN PRN Reason: Magnesium </= 1.6 Potassium Chloride 40 meq/ (Dextrose) 520 mls @ 130 mls/hr IV UD PRN PRN Reason: Potassium < 3 Labetalol HCl (Labetalol 5 Mg/Ml Ml) 0 mg IV Q2HP PRN PRN Reason: Hypertension Losartan Potassium (Losartan 50 Mg Tablet) 50 mg PO DAILY [facility] Last Admin: 12/27/20 09:19 Dose: 50 mg Documented by: Melatonin (Melatonin 3 Mg Tablet) 3 mg PO HS [facility] Last Admin: 12/26/20 21:12 Dose: 3 mg Documented by: Ondansetron HCl (Ondansetron 4 Mg/2 Ml Vial) 4 mg IV Q4HP PRN PRN Reason: Nausea And Vomiting Polyethylene Glycol (Polyethylene Glycol 3350 17 Gm Packet) 17 gm PO DAILYP PRN PRN Reason: Constipation Potassium Chloride (Potassium Chloride 20 Meq Tablet) 40 meq PO UD PRN PRN Reason: Potssium is 3-3.5 Potassium Chloride (Potassium Chloride 20 Meq Tablet) 40 meq PO UD PRN PRN Reason: Potassium < 3 Senna (Sennosides 1 Tablet) 2 tab PO DAILYP PRN PRN Reason: Constipation Sodium Chloride (0.9 % Sodium Chloride 10 Ml Syringe) 10 ml IV Q8 [facility] Last Admin: 12/27/20 05:45 Dose: 10 ml Documented by: Zinc Sulfate (Zinc Sulfate 50 Mg Capsule) 50 mg PO DAILY [facility] Last Admin: 12/27/20 09:19 Dose: 50 mg Documented by: A/P Assessment and plan (1) Pneumonia due to COVID-19 virus: Status: Acute (2) Acute respiratory failure with hypoxia: Status: Acute (3) Anemia, normocytic normochromic: Status: Acute Narrative A/P Narrative: Assessment and Plans: 1. CoVID pneumonia with acute respiratory failure with hypoxia: Transfer to inpatient med surg telemetry Isolation: airborne and contact Supplement oxygen titrate to achieve spo2 >92% Remdesivir Dexamethasone Lasix Lovenox Tylenol PRN fever cbc w/ auto diff in the morning to trend wbc Prone 16hr/day as tolerating 2. Anemia, normocytic normochromic: Daily cbc w/ auto diff in the morning to trend H/H; transfuse pRBC if hemoglobin <7.0, active bleeding, or symptomatic GI ppx: not currently indicated DVT ppx: Lovenox Code status: DNI DNR Prognosis: guarded Disposition: inpatient med surg telemetry Time Spent With Patient Time: Total time spent is greater than 50% in coordination of care (as documented) at patient's floor/unit and/or counseling patient: QUALITY VTE Deep Vein Thrombosis/Pulmonary Embolism Present on Admission: No
[2020-12-27] MEDS ORDERED: MAGNESIUM SULFATE 2 GM/50 ML BAG IV PRN (12:22)
[2020-12-27] MEDS ORDERED: ONDANSETRON 4 MG/2 ML VIAL IV PRN (12:22)
[2020-12-27] MEDS ORDERED: LABETALOL 5 MG/ML ML IV PRN (12:22)
[2020-12-27] MEDS ORDERED: IPRATROPIUM/ALBUTEROL 3 ML AMPUL.NEB NEB PRN (12:22)
[2020-12-27] MEDS ORDERED: ACETAMINOPHEN 325 MG TABLET PO PRN (12:22)
[2020-12-27] MEDS ORDERED: POTASSIUM CHLORIDE 40 MEQ in DEXTROSE 5% IN WATER 500 ML IV PRN (12:22)
[2020-12-27] MEDS ORDERED: POLYETHYLENE GLYCOL 3350 17 GM PACKET PO PRN (12:22)
[2020-12-27] MEDS ORDERED: SENNOSIDES 1 TABLET PO PRN (12:22)
[2020-12-27] MEDS ORDERED: POTASSIUM CHLORIDE 20 MEQ TABLET PO PRN ×2 (12:22)
[2020-12-27] MEDS ORDERED: IPRATROPIUM/ALBUTEROL SULFATE 1 PUFF INHALER INH PRN (12:22)
[2020-12-27] MEDS: diphenhydrAMINE 25 MG CAPSULE PO SCH (21:51)
[2020-12-27] MEDS: MELATONIN 3 MG TABLET PO SCH (21:51)
[2020-12-27] MEDS: ACETAMINOPHEN 500 MG TABLET PO SCH (21:51)
[2020-12-28] MEDS: 0.9 % SODIUM CHLORIDE 10 ML SYRINGE IV SCH ×5 (04:14→20:48)
[2020-12-28 06:50] LABS: Basophils # (Auto) 0.04 K/mcL (0.00-0.30); Basophils % (Auto) 0.3 % (0.0-2.0); Eosinophils # (Auto) 0.01 K/mcL (0.00-0.70); Eosinophils % (Auto) 0.1 % (0.0-7.0); Hematocrit 36.6 % (40.1-51.0); Hemoglobin 12.6 g/dL (13.7-17.5); Lymphocytes # (Auto) 1.45 K/mcL (1.50-4.80); Lymphocytes % (Auto) 11.4 % (15.5-49.0); Mean Cell Volume 92.2 fL (80.0-100.0); Mean Corpuscular HGB Conc 34.4 g/dL (31.0-36.0); Mean Platelet Volume 10.1 fL (7.4-10.4); Monocytes # (Auto) 0.96 K/mcL (0.10-0.90); Monocytes % (Auto) 7.6 % (1.0-12.0); Neutrophils % (Auto) 80.6 % (38.0-78.0); Platelet Count 334 K/mcL (140-440); RBC 3.97 M/mcL (4.63-6.08); Red Cell Distribution Width 11.3 % (11.5-14.5); WBC 12.7 K/mcL (4.5-11.0)
[2020-12-28 07:35] LABS: ALT/SGPT 52 U/L (<40); AST/SGOT 22 U/L (<40); Alkaline Phosphatase 82 U/L (39-117); Bilirubin,Total 0.3 mg/dL (0.1-1.0); Blood Urea Nitrogen 21 mg/dL (8-23); Calcium 8.4 mg/dL (8.6-10.4); Carbon Dioxide 27 mmol/L (22-30); Chloride 104 mmol/L (96-108); Glomerular Filtration Rate 86; Glucose 120 mg/dL (70-105)
[2020-12-28] MEDS: LOSARTAN 50 MG TABLET PO SCH (08:50)
[2020-12-28] MEDS: amLODIPine 10 MG TABLET PO SCH (08:51)
[2020-12-28] MEDS: DEXAMETHASONE 4 MG TABLET PO SCH (08:51)
[2020-12-28] MEDS: ZINC SULFATE 50 MG CAPSULE PO SCH (08:51)
[2020-12-28] MEDS: FUROSEMIDE 40 MG TABLET PO SCH (08:51)
[2020-12-28] MEDS: ASPIRIN 81 MG TAB.CHEW PO SCH (08:51)
[2020-12-28] MEDS: ENOXAPARIN 40 MG/0.4 ML SYRINGE SQ SCH ×2 (08:52→20:48)
--- NOTE | 2020-12-28 11:41 | Internal Med Progress Note ---
SUBJECTIVE Subjective Patient information: Note initiated : 12/28/20 at 11:39 am Service Date, if different from initiated Date: [] Patient: Shay Finch a 70 y/o M admitted on 12/22/20 for SOB covid. Chief Complaint: [CoVID pneumonia] Interval history: History of present illness: Mr. Finch is a 70 year old M Presents to the ED with shortness of breath. Patient has been feeling ill for about a week at which time he was exposed to his son who was sick. He had fevers and chills at times but not too bad. 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 He was seen at [facility] and was found to be hypoxic and was Covid positive. Pt was not vaccinated. In the ED he had sats of 85% on room air. Labs show a leukopenia and a mild elevation in transaminases and a creatinine of 1.4 with unknown baseline. Lactate 2.2. 12/23 Slept okay. Occasional cough. Feels her shortness of breath is improving. No other complaints. 12/24 Patient became increasingly hypoxic last night. He did not clearly feel short of breath but he required 215 L oxygen mask. Transfer to PCU on Vapotherm. Patient has occasional cough and does have shortness of breath but does not feel it is any worse. 12/25 Patient on Vapotherm at 20 L/min. FiO2 around 70. Patient does feel like he is breathing better. No overnight event or new complaints. Mild cough. 12/26: Been switched to high flow oxygen @6L earlier this morning, saturating mid-90s. Afebrile overnight. Tolerating proning. Improving degree of shortness of breath. c/o nonproductive cough. Denies wheezing. Denies chest pain. Denies fever or chills or sweating. Denies muscle aches. 12/27: Afebrile overnight. Been on 4-10L/min oxygen depending on posture. Tolerating proning. Improving degree of shortness of breath. c/o productive cough with clear sputum production. Denies wheezing. Denies chest pain. Denies fever or chills or sweating. Denies muscle aches. 12/28: Afebrile overnight. Been on 5L/min oxygen depending on posture. Tolerating proning. Improving degree of shortness of breath. c/o productive cough with clear sputum production. Denies wheezing. Denies chest pain. Denies fever or chills or sweating. Denies muscle aches. Constitutional Vitals: Vital Signs Temp Pulse Resp BP Pulse Ox 36.5 C 65 20 116/75 91 12/28/20 07:16 12/28/20 07:16 12/28/20 07:53 12/28/20 07:16 12/28/20 07:53 Period Temp Pulse Resp BP Sys/Jones Pulse Ox Last 24 Hr 36.2 C-36.7 C 59-78 15 107-130/69-87 91-98 Intake and Output 12/27/20 12/28/20 12/28/20 21:59 05:59 13:59 Intake Total 1000 480 Output Total 1450 750 500 Balance -450 -270 -500 Weight 117.169 kg Intake & Output: Intake & Output 12/27/20 12/28/20 12/28/20 21:59 05:59 13:59 Intake Total 1000 480 Output Total 1450 750 500 Balance -450 -270 -500 Weight 117.169 kg Intake: Oral 600 480 GI Tube Flush 400 Output: Void Amount 1450 750 500 Other: Meal Dinner Percent of Meal Consumed 100% Feeding Ability Independent Urine Appearance Clear Clear Clear Urine Color Bright Yellow Bright Yellow Bright Yellow Straw Urine Odor Normal Normal Stool Size Large Stool Color Brown Stool Consistency Formed # Voids 1 # Bowel Movements 1 General appearance: cooperative and no acute distress Head Head exam: Present atraumatic and normocephalic Eye Eye exam: Present EOMI and PERRL ENT ENT exam: Present mucous membranes moist, normal exam and normal external ear exam Additional comments: Nasal cannula in place Neck Neck exam: Present normal inspection; Absent lymphadenopathy, tenderness and thyromegaly Respiratory Respiratory exam: Present rhonchi; Absent accessory muscle use, respiratory distress and wheezes Cardiovascular Cardiovascular exam: Present normal rate and rhythm; Absent JVD GI/Abdominal GI/Abdominal exam: Present normal bowel sounds and soft; Absent organomegaly and tenderness Rectal Rectal exam: Present deferred Extremities Exam Extremities exam: Present full ROM, normal capillary refill and normal inspection; Absent tenderness Neurological Exam Neurological exam: Present alert, CN II-XII intact and oriented X3; Absent motor sensory deficit Psychiatric Psychiatric exam: Present normal affect and normal mood; Absent anxious and de pressed Skin Skin exam: Present dry and intact OBJ DATA Labs CBC & Chem 7: 12/28/20 05:45 12/28/20 05:44 Labs: Abnormal Lab Results 12/28/20 12/28/20 12/27/20 05:45 05:44 05:34 WBC 12.7 H RBC 3.97 L Hgb 12.6 L Hct 36.6 L RDW 11.3 L Neut % (Auto) 80.6 H Lymph % (Auto) 11.4 L Lymph # (Auto) 1.45 L [place] # (Auto) 0.96 H Absolute Neutrophils 10.25 H BUN Glucose 120 H 118 H Calcium 8.4 L AST ALT 52 H 64 H Albumin 3.0 L 2.9 L Albumin/Globulin Ratio 0.9 L 12/27/20 12/26/20 12/26/20 05:34 05:17 05:17 WBC 12.0 H 11.6 H RBC 3.98 L 3.83 L Hgb 12.7 L 12.5 L Hct 36.4 L 35.6 L RDW 11.2 L 11.2 L Neut % (Auto) 78.4 H 82.6 H Lymph % (Auto) 12.8 L 10.1 L Lymph # (Auto) 1.17 L [place] # (Auto) 0.98 H Absolute Neutrophils 9.43 H 9.55 H BUN 24 H Glucose 128 H Calcium 8.4 L AST 47 H ALT 77 H Albumin 3.1 L Albumin/Globulin Ratio Meds: Medications Acetaminophen (Acetaminophen 500 Mg Tablet) 500 mg PO QHS [facility]; Protocol Last Admin: 12/27/20 21:51 Dose: 500 mg Documented by: Acetaminophen (Acetaminophen 325 Mg Tablet) 650 mg PO Q6HP PRN PRN Reason: PAIN/FEVER > 101 Albuterol/Ipratropium (Ipratropium/Albuterol Sulfate 1 Puff Inhaler) 2 puff INH QIDP PRN PRN Reason: dys Albuterol/Ipratropium (Ipratropium/Albuterol 3 Ml Ampul.Neb) 3 ml NEB Q4HP PRN PRN Reason: Shortness Of Breath Amlodipine Besylate (Amlodipine 10 Mg Tablet) 10 mg PO QDAY [facility] Last Admin: 12/28/20 08:51 Dose: 10 mg Documented by: Aspirin (Aspirin 81 Mg Tab.Chew) 81 mg PO DAILY [facility] Last Admin: 12/28/20 08:51 Dose: 81 mg Documented by: Dexamethasone (Dexamethasone 4 Mg Tablet) 6 mg PO DAILY [facility] Last Admin: 12/28/20 08:51 Dose: 6 mg Documented by: Diphenhydramine HCl (Diphenhydramine 25 Mg Capsule) 25 mg PO QHS [facility] Last Admin: 12/27/20 21:51 Dose: 25 mg Documented by: Enoxaparin Sodium (Enoxaparin 40 Mg/0.4 Ml Syringe) 40 mg SQ BID [facility] Last Admin: 12/28/20 08:52 Dose: 40 mg Documented by: Furosemide (Furosemide 40 Mg Tablet) 40 mg PO DAILY [facility] Last Admin: 12/28/20 08:51 Dose: 40 mg Documented by: Magnesium Sulfate (Magnesium Sulfate) 2 gm in 50 mls @ 50 mls/hr IV UD PRN PRN Reason: Magnesium </= 1.6 Potassium Chloride 40 meq/ (Dextrose) 520 mls @ 130 mls/hr IV UD PRN PRN Reason: Potassium < 3 Labetalol HCl (Labetalol 5 Mg/Ml Ml) 0 mg IV Q2HP PRN PRN Reason: Hypertension Losartan Potassium (Losartan 50 Mg Tablet) 50 mg PO DAILY [facility] Last Admin: 12/28/20 08:50 Dose: 50 mg Documented by: Melatonin (Melatonin 3 Mg Tablet) [address] [facility] Last Admin: 12/27/20 21:51 Dose: 3 mg Documented by: Ondansetron HCl (Ondansetron 4 Mg/2 Ml Vial) 4 mg IV Q4HP PRN PRN Reason: Nausea And Vomiting Polyethylene Glycol (Polyethylene Glycol 3350 17 Gm Packet) 17 gm PO DAILYP PRN PRN Reason: Constipation Potassium Chloride (Potassium Chloride 20 Meq Tablet) 40 meq PO UD PRN PRN Reason: Potssium is 3-3.5 Potassium Chloride (Potassium Chloride 20 Meq Tablet) 40 meq PO UD PRN PRN Reason: Potassium < 3 Senna (Sennosides 1 Tablet) 2 tab PO DAILYP PRN PRN Reason: Constipation Sodium Chloride (0.9 % Sodium Chloride 10 Ml Syringe) 10 ml IV Q8 [facility] Last Admin: 12/28/20 05:20 Dose: 10 ml Documented by: Zinc Sulfate (Zinc Sulfate 50 Mg Capsule) 50 mg PO DAILY [facility] Last Admin: 12/28/20 08:51 Dose: 50 mg Documented by: A/P Assessment and plan (1) Pneumonia due to COVID-19 virus: Status: Acute (2) Acute respiratory failure with hypoxia: Status: Acute (3) Anemia, normocytic normochromic: Status: Acute Narrative A/P Narrative: Assessment and Plans: 1. CoVID pneumonia with acute respiratory failure with hypoxia: Stays in inpatient med surg telemetry Isolation: airborne and contact Supplement oxygen titrate to achieve spo2 >92% Remdesivir Dexamethasone Lasix Lovenox Tylenol PRN fever cbc w/ auto diff in the morning to trend wbc Prone 16hr/day as tolerating d/c home with home oxygen when oxygen requirement <=4L/min 2. Anemia, normocytic normochromic: Daily cbc w/ auto diff in the morning to trend H/H; transfuse pRBC if hemoglobin <7.0, active bleeding, or symptomatic GI ppx: not currently indicated DVT ppx: Lovenox Code status: DNI DNR Prognosis: stable Disposition: inpatient med surg telemetry; d/c home with home oxygen when oxygen requirement <=4L/min Time Spent With Patient Time: Total time spent is greater than 50% in coordination of care (as documented) at patient's floor/unit and/or counseling patient: QUALITY VTE Deep Vein Thrombosis/Pulmonary Embolism Present on Admission: No
[2020-12-28] MEDS: ACETAMINOPHEN 500 MG TABLET PO SCH (20:48)
[2020-12-28] MEDS: MELATONIN 3 MG TABLET PO SCH (20:49)
[2020-12-28] MEDS: diphenhydrAMINE 25 MG CAPSULE PO SCH (20:49)
[2020-12-29] MEDS: 0.9 % SODIUM CHLORIDE 10 ML SYRINGE IV SCH ×2 (05:24→12:57)
[2020-12-29] MEDS: ENOXAPARIN 40 MG/0.4 ML SYRINGE SQ SCH (09:16)
[2020-12-29 09:17] LABS: Basophils # (Auto) 0.02 K/mcL (0.00-0.30); Basophils % (Auto) 0.1 % (0.0-2.0); Eosinophils # (Auto) 0 K/mcL (0.00-0.70); Eosinophils % (Auto) 0 % (0.0-7.0); Hematocrit 36.5 % (40.1-51.0); Hemoglobin 13.2 g/dL (13.7-17.5); Lymphocytes # (Auto) 1.42 K/mcL (1.50-4.80); Lymphocytes % (Auto) 9.6 % (15.5-49.0); Mean Cell Volume 90.8 fL (80.0-100.0); Mean Corpuscular HGB Conc 36.2 g/dL (31.0-36.0); Mean Platelet Volume 9.8 fL (7.4-10.4); Monocytes # (Auto) 1.13 K/mcL (0.10-0.90); Monocytes % (Auto) 7.7 % (1.0-12.0); Neutrophils % (Auto) 82.6 % (38.0-78.0); Platelet Count 366 K/mcL (140-440); RBC 4.02 M/mcL (4.63-6.08); Red Cell Distribution Width 11.3 % (11.5-14.5); WBC 14.7 K/mcL (4.5-11.0)
[2020-12-29] MEDS: FUROSEMIDE 40 MG TABLET PO SCH (09:17)
[2020-12-29] MEDS: amLODIPine 10 MG TABLET PO SCH (09:17)
[2020-12-29] MEDS: LOSARTAN 50 MG TABLET PO SCH (09:17)
[2020-12-29] MEDS: DEXAMETHASONE 4 MG TABLET PO SCH (09:17)
[2020-12-29] MEDS: ASPIRIN 81 MG TAB.CHEW PO SCH (09:17)
[2020-12-29] MEDS: ZINC SULFATE 50 MG CAPSULE PO SCH (09:17)
[2020-12-29 09:19] LABS: ALT/SGPT 44 U/L (<40); AST/SGOT 18 U/L (<40); Albumin 2.7 gm/dL (3.2-5.2); Albumin/Globulin Ratio 0.8 (1.0-2.3); Alkaline Phosphatase 82 U/L (39-117); Bilirubin,Total 0.3 mg/dL (0.1-1.0); Blood Urea Nitrogen 22 mg/dL (8-23); Calcium 8.6 mg/dL (8.6-10.4); Carbon Dioxide 23 mmol/L (22-30); Chloride 103 mmol/L (96-108); Globulin 3.3 gm/dL (2.2-3.7); Glomerular Filtration Rate 90; Glucose 117 mg/dL (70-105)
--- NOTE | 2020-12-29 09:32 | Discharge Summary ---
Discharge Provider Provider Patient information: Note initiated : 12/29/20 at 9:29 am Service Date, if different from initiated Date: [] Patient: Shay Finch 70 y/o M admitted on 12/22/20 for SOB covid. Chief Complaint: [CoVID pneumonia] Date of admission: 12/22/20 19:33 Discharge date: 12/29/20 [facility] care physician: [facility] Consults: 12/22/20 Consult to Physician [CONS] Stat Comment: Consulting Provider: Sonido Alford Reason For Exam: Physician to Consult Discharge Meds Discharge Medications Home Medications amlodipine 10 mg PO QDAY 12/22/20 [History Confirmed 12/22/20 Last Taken 12/22/20 09:00] aspirin 81 mg PO QDAY 12/22/20 [History Confirmed 12/22/20 Last Taken 12/22/20 09:00] hydrochlorothiazide 12.5 mg PO QDAY 12/22/20 [History Confirmed 12/22/20 Last Taken 12/22/20 09:00] losartan 100 mg PO DAILY 12/22/20 [History Confirmed 12/22/20 Last Taken 12/22/20 09:00] dextromethorphan-guaifenesin [Robitussin Cough-Chest Andrew DM] 10 ml PO Q8H PRN #237 ml 12/29/20 [Rx Last Taken Unknown] ipratropium-albuterol [Combivent Respimat] 2 puff INH QIDP PRN 14 Days g 12/29/20 [Rx Last Taken Unknown] COURSE Hospital Course Hospital course: Patient was admitted on December 22, 2020 for Covid pneumonia. Supplemental oxygen's, remdesivir, dexamethasone, Lovenox, Lasix, were all provided for patients. Patient continued to gradually improved and by December 29, 2020, patient oxygen requirements down to 4 L/min, been afebrile for more than 24 hours, and otherwise reached clinical stability. As such, decision was made to discharge him home with home oxygen set up for him. 2 weeks PCP appointment made for him. All questions were answered prior to patient being physically discharged. Discharge diagnosis: CoVID pneumonia Time Spent with Patient Time attestation: Total time spent providing and/or coordinating discharge services: Patient was admitted on December 22, 2020 for Covid pneumonia. Supplemental oxygen's, remdesivir, dexamethasone, Lovenox, Lasix, were all provided for patients. Patient continued to gradually improved and by December 29, 2020, patient oxygen requirements down to 4 L/min, been afebrile for more than 24 hours, and otherwise reached clinical stability. As such, decision was made to discharge him home with home oxygen set up for him. 2 weeks PCP appointment made for him. All questions were answered prior to patient being physically discharged. EXAM Constitutional Vitals: Temp Pulse Resp BP Pulse Ox 36.0 C L 64 18 128/79 88 L 12/29/20 07:51 12/29/20 07:51 12/29/20 07:51 12/29/20 07:51 12/29/20 07:51 General appearance: cooperative and no acute distress Head Head exam: Present atraumatic and normocephalic Eye Eye exam: Present EOMI and PERRL ENT ENT exam: Present mucous membranes moist, normal exam and normal external ear exam Additional comments: Nasal cannula in place Neck Neck exam: Present normal inspection; Absent lymphadenopathy, tenderness and thyromegaly Respiratory Respiratory exam: Present rhonchi; Absent accessory muscle use, respiratory distress and wheezes Cardiovascular Cardiovascular exam: Present normal rate and rhythm; Absent JVD GI/Abdominal GI/Abdominal exam: Present normal bowel sounds and soft; Absent organomegaly and tenderness Rectal Rectal exam: Present deferred Extremities Exam Extremities exam: Present full ROM, normal capillary refill and normal inspection; Absent tenderness Neurological Exam Neurological exam: Present alert, CN II-XII intact and oriented X3; Absent motor sensory deficit Psychiatric Psychiatric exam: Present normal affect and normal mood; Absent anxious and depressed Skin Skin exam: Present dry and intact Discharge Data Data Completed and Pending Labs on day of discharge: Labs from last 24 hours 12/29/20 12/29/20 07:55 07:55 WBC 14.7 H RBC 4.02 L Hgb 13.2 L Hct 36.5 L MCV 90.8 MCH 32.8 MCHC 36.2 H RDW 11.3 L Plt Count 366 MPV 9.8 Neut % (Auto) 82.6 H Lymph % (Auto) 9.6 L [place] % (Auto) 7.7 Eos % (Auto) 0 Baso % (Auto) 0.1 Lymph # (Auto) 1.42 L [place] # (Auto) 1.13 H Eos # (Auto) 0 Baso # (Auto) 0.02 Absolute Neutrophils 12.16 H Sodium 135 Potassium 3.7 Chloride 103 Carbon Dioxide 23 Anion Gap 9.0 BUN 22 Creatinine 0.8 GFR Calculation 90 Glucose 117 H Calcium 8.6 Total Bilirubin 0.3 AST 18 ALT 44 H Alkaline Phosphatase 82 Total Protein 6.0 Albumin 2.7 L Globulin 3.3 Albumin/Globulin Ratio 0.8 L Discharge Plan Patient/Caregiver Discharge Instructions Activity: increase activity as tolerated Diet: Regular Diet Prescriptions: New Combivent Respimat 20-100 mcg/actuation Mist 2 puff INH QIDP PRN (Reason: dys) 14 Days RF: 0 Robitussin Cough-Chest Andrew DM 5-100 mg/5 mL liquid 10 ml PO Q8H PRN (Reason: cough) Qty: 237 RF: 0 Continued amlodipine 10 mg tablet 10 mg PO QDAY RF: 0 hydrochlorothiazide 12.5 mg capsule 12.5 mg PO QDAY RF: 0 losartan 100 mg tablet 100 mg PO DAILY RF: 0 aspirin 81 mg Tablet 81 mg PO QDAY RF: 0 Follow Up Plan [facility] [[facility] - Patient Disposition: Home, Self-Care Prognosis: Fair Rehab Potential: Good I certify that the patient requires SNF services: No Overall status at discharge: patient is progressing back to baseline Discharge Orders: Discharge Order (Routine); Ordered 12/29/20 Ordered By: Colby GARCIA VTE Deep Vein Thrombosis/Pulmonary Embolism Present on Admission: No
--- NOTE | 2021-01-05 10:43 | EKG ---
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
== END 2020-12-29 14:00 | disposition home or self-care (01) | DRG 177 ==
LOC: ED 15:49 → MEDSUR 19:30 → ICU 12-24 07:11 → MEDSUR 12-27 14:44
PROVIDERS: ADMIT Internal Medicine; ATTEND Internal Medicine